=== PATIENT | female | born 1980 | race Caucasian/White ===

== ENCOUNTER 2016-05-04 00:10 | Emergency (ER) | payer MEDICAID | END 2016-05-04 02:05 | disposition home or self-care (01) | LOC: D.ER 00:10 | DX: M70.61 Trochanteric bursitis, right hip (principal); Y93.9 Activity, unspecified ==

== ENCOUNTER 2017-06-06 15:25 | Emergency (ER) | payer MEDICAID ==
[2017-06-06 16:00] LABS: APPEARANCE HAZY (CLEAR); BILIRUBIN NEGATIVE (NEGATIVE); COLOR YELLOW (YELLOW); GLUCOSE NEGATIVE (NEGATIVE); KETONE NEGATIVE (NEGATIVE); NITRITE NEGATIVE (NEGATIVE); PROTEIN NEGATIVE (NEGATIVE); UROBILINOGEN NORMAL (NORMAL)
[2017-06-06 16:03] LABS: BACTERIA MODERATE /hpf (NONE SEEN); MUCUS <1+ /lpf (NONE SEEN)
[2017-06-06 16:11] LABS: BASOPHILS 0.3 % (0-2); HEMATOCRIT 40.3 % (36.0-48.0); HEMOGLOBIN 13.4 g/dL (12-16); LYMPHOCYTES 23.8 % (15-50); MCH 28.6 pg (26.0-34.0); MCHC 33.3 g/dL (31.0-37.0); MCV 86.1 fL (80.0-100.0); MEAN PLATELET VOLUME 10.5 fL (7.4-10.4); NEUTROPHILS 63.9 % (40-80); PLATELET COUNT 261 10x3/uL (130-400); RBC 4.68 10x6/uL (4.00-5.40); RDW 13.7 % (11.5-14.5); WBC 6.3 10x3/uL (4.8-10.8)
[2017-06-06 16:37] LABS: ALBUMIN 3.6 g/dL (3.4-5.0); ALKALINE PHOSPHATASE 95 U/L (46-116); ALT (SGPT) 39 U/L (10-68); BILIRUBIN - TOTAL 1.03 mg/dL (0.2-1.3); CALC OSMOLALITY 276 mosm/kg (275-300); CALCIUM 8.8 mg/dL (8.5-10.1); CARBON DIOXIDE 24.4 mmol/L (21.0-32.0); CHLORIDE - SERUM 104 mmol/L (98-107); CREATININE - SERUM 0.7 mg/dL (0.6-1.3); GLUCOSE 104 mg/dL (74-106); POTASSIUM - SERUM 3.8 mmol/L (3.5-5.1); PROTEIN - SERUM 7.5 g/dL (6.4-8.2); SODIUM 139 mmol/L (136-145); UREA NITROGEN 11 mg/dL (7-18); eGFR NON AFRICAN AMERICAN > 90 mL/min (90-120)
== END 2017-06-06 18:31 | disposition home or self-care (01) ==
LOC: D.ER 15:25
PROVIDERS: Emergency Medicine
DX: R10.12 Left upper quadrant pain (principal); N76.0 Acute vaginitis; B96.89 Other specified bacterial agents as the cause of diseases classified elsewhere; A59.9 Trichomoniasis, unspecified